=== PATIENT | female | born 1975 | race Caucasian/White ===

== ENCOUNTER 2019-08-08 16:39 | Emergency (ER) | payer OTHER, SELFPAY ==
[2019-08-08 16:45] VITALS: BP 135/79; PULSE 101; RESP 16; TEMP 36.8; O2SAT 99
--- NOTE | 2019-08-08 16:51 | ED.GENADUL_ITS ---
Discharge Plan Disposition Patient Disposition: HOME Condition: Improving Discharge Details Chief Complaint: Abd Prob Clinical Impression: Enteritis, Abdominal pain Primary Care Provider: None,None ED Provider: Yolie Owens Home Meds and New Rx's Prescriptions: New dicyclomine 20 mg tablet 20 mg PO TID PRN (Reason: abdominal pain) Qty: 10 RF: 0 Continued Zyrtec 10 mg Capsule 10 mg PO DAILY RF: 0 Discharge Instructions Instructions: Dicyclomine (By mouth), Abdominal Pain (ED), Enteritis (ED) Additional Instructions: Drink plenty of fluids and get plenty of rest. Alternate tylenol and motrin as needed and directed for pain. Take the dicyclomine (bentyl) as needed and directed for your abdominal pain. Follow-up with your primary care doctor in 1 week. Also call your DIRECTOR TECHNICAL next week for a follow-up appointment for reevaluation. Return to the emergency department with any worsening or new concerning sym ptoms. Discharge Data Discharge Physician: Yolie Owens Medical Decision Making 1635 -- 44-year-old female with a history of appendectomy presents with lower abdominal pain, dysuria, frequency and urgency for the past 5 days. She appears nontoxic. She has mild to moderate lower abdominal tenderness. No CVA tenderness. UTI. Will start with urinalysis and if negative proceed with further work-up. Urinalysis negative for infection. We will proceed with IV and labs, Toradol and CT. Differential diagnosis could include colitis, diverticulitis, ovarian cyst, etc. Patient is agreeable with plan. 1900 --labs and imaging reviewed. Normal white blood cell count, electrolytes. CT notes findings consistent with possible enteritis. Patient reassessed -symptoms improved. She feels good to go home. She is advised to continue fluids, alternating Tylenol and Motrin. Advised to follow up with the primary care doctor for re-evaluation. Usual and customary return precautions given prior to discharge. Medical Records Medical records reviewed: Yes I reviewed the patient's medical records. Imaging Data Radiologic Study: Radiologist's impression: CT Abdomen And Pelvis With Contrast Exam date and time: 08/08/2019 5:58 PM Age: 44 years old Clinical indication: Abdominal pain; Localized; Patient HX: Lower abd pain; Additional info: R/O diverticulitis TECHNIQUE: Imaging protocol: Computed tomography of the abdomen and pelvis with intravenous contrast. COMPARISON: No relevant prior studies available. FINDINGS: Liver: Low-density hepatic lesions consistent with cysts. Gallbladder and bile ducts: Normal. No calcified stones. No ductal dilation. Pancreas: Normal. No ductal dilation. Spleen: Normal. No splenomegaly. Adrenals: Normal. No mass. Kidneys and ureters: Normal. No hydronephrosis. Stomach and bowel: There is mild wall thickening involving the distal duodenum and proximal jejunum. Appendix: No evidence of appendicitis. Intraperitoneal space: Trace free fluid seen in the deep pelvis. Vasculature: Unremarkable. No abdominal aortic aneurysm. Lymph nodes: Unremarkable. No enlarged lymph nodes. Bladder: Unremarkable as visualized. Reproductive: Unremarkable as visualized. Bones/joints: Unremarkable. No acute fracture. Soft tissues: Unremarkable. IMPRESSION: Possible enteritis. Lab Data Lab results reviewed: Yes I reviewed the patient's lab results. Labs: Laboratory Tests Range/Units 08/08/19 08/08/19 08/08/19 17:00 18:05 18:05 WBC (4.4-10.8) k/cumm 9.75 RBC (4.00-5.20) m/cumm 4.55 Hgb (12.0-15.5) g/dL 12.6 Hct (36.0-46.0) % 38.3 MCV (80-95) fL 84.2 MCH (27.0-33.0) pg 27.7 MCHC (32.0-36.0) g/dL 32.9 RDW (11.7-14.6) % 13.5 Plt Count (130-400) x1000/uL 273 MPV (8.0-11.0) fL 9.2 Immature Gran % % 0.3 Neutrophils % 70.5 Lymphocytes % 19.6 Monocytes % 9.0 Eosinophils % 0.4 Basophils % 0.2 Absolute Neutrophils (1.2-6.7) k/cumm 6.87 H Absolute Lymphocytes (1.2-3.4) k/cumm 1.91 Absolute Monocytes (0.11-0.7) k/cumm 0.88 H Absolute Eosinophils (0.0-0.7) k/cumm 0.04 Absolute Basophils (0.0-0.2) k/cumm 0.02 Sodium (136-145) mmol/L Potassium (3.5-5.1) mmol/L Chloride (98-107) mmol/L Carbon Dioxide (21.0-32.0) mmol/L Anion Gap (3-11) mmol/L BUN (7-18) mg/dL Creatinine (0.55-1.02) mg/dL Estimated GFR/1.73 m2 (mL/min/1.73m2) Glucose (74-106) mg/dL Calcium (8.5-10.1) mg/dL Total Bilirubin (0.2-1.0) mg/dL AST (15-37) U/L ALT (14-59) U/L Alkaline Phosphatase (46-116) U/L Total Protein (6.4-8.2) g/dL Albumin (3.4-5.0) g/dL Lipase (73-393) U/L 73 Urine Color (Yellow) Yellow Urine Clarity (Clear) Clear Urine pH (5-8) 7.0 Ur Specific [place] (1.005-1.025) 1.010 Urine Protein (Negative) mg/dL Negative Urine Ketones (Negative) mg/dL 40 H Urine Blood (Negative) Negative Urine Nitrite (Negative) Negative Urine Bilirubin (Negative) Negative Urine Urobilinogen (Up TO 0.2) EU/dL 0.2 Ur Leukocyte Esterase (Negative) Negative Urine Glucose (Negative) mg/dL Negative Range/Units 08/08/19 18:05 WBC (4.4-10.8) k/cumm RBC (4.00-5.20) m/cumm Hgb (12.0-15.5) g/dL Hct (36.0-46.0) % MCV (80-95) fL MCH (27.0-33.0) pg MCHC (32.0-36.0) g/dL RDW (11.7-14.6) % Plt Count (130-400) x1000/uL MPV (8.0-11.0) fL Immature Gran % % Neutrophils % Lymphocytes % Monocytes % Eosinophils % Basophils % Absolute Neutrophils (1.2-6.7) k/cumm Absolute Lymphocytes (1.2-3.4) k/cumm Absolute Monocytes (0.11-0.7) k/cumm Absolute Eosinophils (0.0-0.7) k/cumm Absolute Basophils (0.0-0.2) k/cumm Sodium (136-145) mmol/L 136 Potassium (3.5-5.1) mmol/L 3.6 Chloride (98-107) mmol/L 102 Carbon Dioxide (21.0-32.0) mmol/L 25.5 Anion Gap (3-11) mmol/L 8.5 BUN (7-18) mg/dL 8 Creatinine (0.55-1.02) mg/dL 0.81 Estimated GFR/1.73 m2 (mL/min/1.73m2) >= 60.00 Glucose (74-106) mg/dL 102 Calcium (8.5-10.1) mg/dL 9.1 Total Bilirubin (0.2-1.0) mg/dL 0.5 AST (15-37) U/L 15 ALT (14-59) U/L 21 Alkaline Phosphatase (46-116) U/L 75 Total Protein (6.4-8.2) g/dL 7.3 Albumin (3.4-5.0) g/dL 3.7 Lipase (73-393) U/L Urine Color (Yellow) Urine Clarity (Clear) Urine pH (5-8) Ur Specific [place] (1.005-1.025) Urine Protein (Negative) mg/dL Urine Ketones (Negative) mg/dL Urine Blood (Negative) Urine Nitrite (Negative) Urine Bilirubin (Negative) Urine Urobilinogen (Up TO 0.2) EU/dL Ur Leukocyte Esterase (Negative) Urine Glucose (Negative) mg/dL HPI General Mode of arrival: ambulatory . Date/Time Provider Initiated Documentation: 08/08/19 16:42 . Limitations to Documentation: no limitations . Information obtained by: patient . HPI Narrative: Patient is a 44-year-old female with a history of appendectomy who presents with lower abdominal pain for the past 5 days. She describes the pain is intermittent, stabbing, and pressure-like that started around her umbilicus and radiates down into her pubic area. She denies any aggravating or alleviating factors. She states the pain is currently 5/10. She admits to some nausea and decreased appetite this week but denies any vomiting or diarrhea. She does admit to some intermittent dysuria, urinary frequency and urgency. She states she gets regular periods and denies any abnormal vaginal bleeding. She states she has not been sexually active for 2 months and denies any vaginal discharge, known exposure to STDs or vaginal lesions. Related Data Home Medications Medication Instructions Recorded Confirmed Zyrtec 10 mg PO DAILY 08/08/19 08/08/19 dicyclomine 20 mg PO TID PRN #10 tab 08/08/19 Previous Rx's Medication Instructions Recorded dicyclomine 20 mg PO TID PRN #10 tab 08/08/19 Allergies Allergy/AdvReac Type Severity Reaction Status Date / Time No Known Allergies Allergy Unverified 08/08/19 16:49 General Stated Complaint: Abd Prob CRISTOBAL: 3 Review of Systems All systems reviewed & are unremarkable except as noted in HPI and below Constitutional Constitutional: Reports as per HPI, Denies chills and Denies fever(s) Eyes Eyes: Denies blurry vision ENT Ears, Nose, Mouth, and Throat: Denies dizziness, Denies sore throat and Denies throat swelling Cardiovascular Cardiovascular: Denies chest pain and Denies dyspnea Respiratory Respiratory: Denies cough and Denies dyspnea Gastrointestinal Gastrointestinal: Reports abdominal pain, Denies diarrhea and Denies vomiting Genitourinary Genitourinary: Denies hematuria and Denies dysuria Musculoskeletal Musculoskeletal: Denies back pain and Denies numbness Integumentary/Breasts Skin/Breast: Denies lesions and Denies rash Neurologic Neurologic: Denies dizziness, Denies localized weakness and Denies numbness Allergic/Immunologic Allergic/Immunologic: Denies throat swelling [facility] Medical History (Updated 08/08/19 @ 19:15 by Yolie Owens DO) No significant past medical history (Acute) Surgical History (Updated 08/08/19 @ 16:56 by Tram Tucker) History of appendectomy (Chronic) History of section (Chronic) Social History Smoking/Tobacco Use Status: Former Tobacco Use Alcohol Intake: never Drug use: Never Substance use type: does not use Details: quit smoking at 17 yrs age Do you feel safe at home: No Do you feel safe in your relationship?: No Exam Const General: cooperative, healthy appearing and no acute distress [facility] Head: normal to inspection Face and sinus: normal facial exam Eyes General: appearance normal, both eyes and all related structures EOM: EOM intact bilaterally Neck Neck: normal visual inspection and No submandibular swelling Lymphatic: no lymphadenopathy noted Chest Chest: normal inspection of the chest and no tenderness Resp Effort & Inspection: normal respiratory effort and able to speak in complete sentences Auscultation: clear to auscultation bilaterally Cardio Rate: regular rate Rhythm: regular rhythm GI Inspection: normal to inspection Palpation: soft, not firm, not rigid and tender in the LLQ, in the RLQ and suprapubicly Auscultation: normal bowel sounds and hypoactive bowel sounds Back/Spine/Pelvis Back: no CVA tenderness Skin General skin exam: no rashes or lesions noted Neuro General: patient alert, patient awake and patient oriented x3 Cognition: normal cognition Speech: speech normal Motor: muscle tone normal throughout Sensory Exam: no sensory deficits noted Extrem General: normal to inspection, full ROM, capillary refill normal, no calf tenderness bilaterally and no edema Psych Appearance: grossly normal Mental Status: mental status grossly normal Speech and Movement: speech and movement normal Affect: normal affect Course Vital Signs Vital signs: Vital Signs Temperature 98.2 F 08/08/19 16:45 Pulse 101 H 08/08/19 16:45 Respiratory Rate 16 08/08/19 16:45 Blood Pressure 135/79 08/08/19 16:45 Pulse Oximetry 99 08/08/19 16:45 Temperature 98.2 F 08/08/19 16:45 Temperature Source Temporal Artery Scan 08/08/19 16:45 Pulse 101 H 08/08/19 16:45 Respiratory Rate 16 08/08/19 16:45 Blood Pressure 135/79 08/08/19 16:45 Pulse Oximetry 99 08/08/19 16:45 Oxygen Delivery Method Room Air 08/08/19 16:45 Oxygen Flow Rate 0 08/08/19 16:45 Pain Level 2 08/08/19 16:45
[2019-08-08] MEDS: Acetaminophen 500 MG TAB 1000 MG PO (17:23)
--- NOTE | 2019-08-08 17:45 | DI.CT_ITS ---
EXAM: CT ABDOMEN PELVIS W CLINICAL HISTORY: lower abd pain, r/o diverticulitis TECHNIQUE: Imaging Protocol: Axial computed tomography images with coronal and sagittal reformatted images were created and reviewed CONTRAST MATERIAL: Intravenous: Omnipaque 350 Contrast volume:100 mL Oral: No COMPARISON: No exams were available for comparison FINDINGS: ABDOMEN: Lung Bases: Normal where visualized. Liver: Normal density. Several well-circumscribed round hypodensities are seen throughout the liver, most suggestive of cysts. No suspicious hepatic mass. Portal, Superior Mesenteric, and Splenic Veins: Unremarkable. Gallbladder and Biliary Tract: No radiodense calculus or dilation. Pancreas: Normal density, no abnormal calcifications or inflammatory process. Spleen: Normal. Adrenals: No masses seen. Kidneys: Normal size, contour and axis. No radiodense stones or obstructive uropathy. No masses seen. Abdominal Aorta: Abdominal portion non-dilated. Bowel: There is no evidence of bowel obstruction. There is mild wall thickening in the duodenum and proximal jejunum. No evidence of acute appendicitis. There are surgical clips in the right lower qu adrant which may reflect prior appendectomy. Peritoneal Cavity: No ascites, collection or mesenteric inflammatory response. There is a trace amoun t of free fluid in the cul-de-sac. Lymph Nodes: Within normal limits. Bones: Unremarkable. Soft Tissues: Unremarkable. PELVIS: Bladder: Symmetric distention, no gross wall thickening. Reproductive Organs: Unremarkable as visualized. Lymph Nodes: Within normal limits. Bones: Within normal limits. IMPRESSION: Mild wall thickening of the duodenum or proximal jejunum. This may reflect a mild enteritis. RADIATION DOSE DELIVERED: Total DLP DATA REPOSITORY: All CT scans at this facility are submitted to the National Radiology Data Registry (NRDR) Dose Index Registry (DIR) with the [employer] (ACR). RADIATION OPTIMIZATION: All CT scans at this facility use at least one of these dose optimization te chniques: automated exposure control; mA and/or kV adjustment per patient size (includes targeted exa ms where dose is matched to clinical indication); or iterative reconstruction.
[2019-08-08 17:52] LABS: Bilirubin Negative (Negative); Blood Negative (Negative); Clarity Clear (Clear); Glucose Negative (Negative); Ketones 40 mg/dL (Negative); Leukocyte Esterase Negative (Negative); Nitrite Negative (Negative); Urobilinogen 0.2 EU/dL (Up TO 0.2)
[2019-08-08] MEDS: Ketorolac 30 MG/ML VIAL IVP (18:08)
[2019-08-08] MEDS: Omnipaque 350 MG/ML 100 ML BTL IJ (18:17)
[2019-08-08] MEDS: Normal Saline - Diluent 50 ML VIAL IV (18:18)
[2019-08-08 18:21] LABS: Lipase 73 U/L (73-393)
[2019-08-08 18:38] LABS: Abs Immature Grans 0.03 k/cumm (0.0-0.09); Absolute Basophil Count 0.02 k/cumm (0.0-0.2); Absolute Eosinophil Count 0.04 k/cumm (0.0-0.7); Absolute Lymphocyte Count 1.91 k/cumm (1.2-3.4); Absolute Monocyte Count 0.88 k/cumm (0.11-0.7); Absolute Neutrophil Count 6.87 k/cumm (1.2-6.7); Basophils % 0.2; Eosinophils % 0.4; HCT 38.3 % (36.0-46.0); HGB 12.6 g/dL (12.0-15.5); Immature Grans % 0.3 %; Lymphocytes % 19.6; Mean Corp. HGB Concentration 32.9 g/dL (32.0-36.0); Mean Corpuscular Hemoglobin 27.7 pg (27.0-33.0); Mean Corpuscular Volume 84.2 fL (80-95); Mean Platelet Volume 9.2 fL (8.0-11.0); Neutrophils % 70.5; Platelet Count 273 x1000/uL (130-400); RBC 4.55 m/cumm (4.00-5.20); RBC Distribution Width 13.5 % (11.7-14.6); White Blood Cell Count 9.75 k/cumm (4.4-10.8)
--- NOTE | 2019-08-08 18:41 | DI.VRAD_ITS ---
PROCEDURE INFORMATION: Exam: CT Abdomen And Pelvis With Contrast Exam date and time: 08/08/2019 5:58 PM Age: 44 years old Clinical indication: Abdominal pain; Localized; Patient HX: Lower abd pain; Additional info: R/O diverticulitis TECHNIQUE: Imaging protocol: Computed tomography of the abdomen and pelvis with intravenous contrast. COMPARISON: No relevant prior studies available. FINDINGS: Liver: Low-density hepatic lesions consistent with cysts. Gallbladder and bile ducts: Normal. No calcified stones. No ductal dilation. Pancreas: Normal. No ductal dilation. Spleen: Normal. No splenomegaly. Adrenals: Normal. No mass. Kidneys and ureters: Normal. No hydronephrosis. Stomach and bowel: There is mild wall thickening involving the distal duodenum and proximal jejunum. Appendix: No evidence of appendicitis. Intraperitoneal space: Trace free fluid seen in the deep pelvis. Vasculature: Unremarkable. No abdominal aortic aneurysm. Lymph nodes: Unremarkable. No enlarged lymph nodes. Bladder: Unremarkable as visualized. Reproductive: Unremarkable as visualized. Bones/joints: Unremarkable. No acute fracture. Soft tissues: Unremarkable. IMPRESSION: Possible enteritis. COMMENTS: Preliminary interpretation is based on receipt of 1101 image(s). A final report will be issued subsequently. Dictated and Authenticated by: Tram Macias MD. Ordering:LINAD Urbano MD
[2019-08-08 19:03] LABS: ALT 21 U/L (14-59); AST 15 U/L (15-37); Albumin 3.7 g/dL (3.4-5.0); Alkaline Phosphatase 75 U/L (46-116); Anion Gap 8.5 mmol/L (3-11); BUN 8 mg/dL (7-18); Bilirubin, Total 0.5 mg/dL (0.2-1.0); CO2 25.5 mmol/L (21.0-32.0); CREATININE 0.81 mg/dL (0.55-1.02); Calcium 9.1 mg/dL (8.5-10.1); Chloride 102 mmol/L (98-107); Glucose 102 mg/dL (74-106); Potassium 3.6 mmol/L (3.5-5.1); Sodium 136 mmol/L (136-145); Total Protein 7.3 g/dL (6.4-8.2)
[2019-08-08 19:09] VITALS: BP 112/68; PULSE 94; RESP 15; O2SAT 99
[2019-08-08 19:32] VITALS: BP 111/69; PULSE 84; RESP 18; TEMP 37.1; O2SAT 98
== END 2019-08-08 19:55 | disposition home or self-care (01) ==
PROVIDERS: Emergency Provider Physician Assistant
DX: K52.89 Other specified noninfective gastroenteritis and colitis (principal); R11.0 Nausea; R30.0 Dysuria
CPT/HCPCS: 36415; 80053; 81025; 83690; 96374; 99285; 74177; 81003; 85025; J1885; J3490

== ENCOUNTER 2019-08-14 10:46 | Outpatient (REF) | payer OTHER, SELFPAY ==
--- NOTE | 2019-08-14 10:00 | PAPFT_PTH ---
PATIENT: Oliva Terrazas LOC: [facility] U#:[id number] AGE/SX: 44/F ROOM: RE08/14/[address]: Judy Gaspar DO : 1975 BED: DIS: 08/14/2019 SPEC #: [id number] RECD: 08/14/19 12:41 STATUS: OKRTNEY REQ #: [id number] PEDRO: 08/14/19 10:[address]: Judy Gaspar DEPT: [facility] Cytology RECD BY: Margie Inman ENTERED: 08/14/19 12:41 SP TYPE: PAPFT OTHR DR: None Tissues: 1 - CX/ENDOCX FOR PAP SMEARS Procedures: PAP THIN PREP/UVM Screening HPV DNA PROBE Comments: [id number] (CHLAMYDIA/GC)
[2019-08-14 11:07] LABS: Abs Immature Grans 0.01 k/cumm (0.0-0.09); Absolute Basophil Count 0.01 k/cumm (0.0-0.2); Absolute Eosinophil Count 0.01 k/cumm (0.0-0.7); Absolute Lymphocyte Count 1.36 k/cumm (1.2-3.4); Absolute Monocyte Count 0.44 k/cumm (0.11-0.7); Absolute Neutrophil Count 4.56 k/cumm (1.2-6.7); Basophils % 0.2; Eosinophils % 0.2; HCT 38.6 % (36.0-46.0); Immature Grans % 0.2 %; Lymphocytes % 21.3; Mean Corp. HGB Concentration 33.7 g/dL (32.0-36.0); Mean Corpuscular Hemoglobin 28.5 pg (27.0-33.0); Mean Corpuscular Volume 84.6 fL (80-95); Mean Platelet Volume 9.6 fL (8.0-11.0); Monocytes % 6.9; Neutrophils % 71.2; Platelet Count 282 x1000/uL (130-400); RBC 4.56 m/cumm (4.00-5.20); RBC Distribution Width 13.5 % (11.7-14.6); White Blood Cell Count 6.39 k/cumm (4.4-10.8)
[2019-08-14 11:22] LABS: ALT 21 U/L (14-59); AST 13 U/L (15-37); Albumin 3.8 g/dL (3.4-5.0); Alkaline Phosphatase 75 U/L (46-116); Anion Gap 7.1 mmol/L (3-11); BUN 13 mg/dL (7-18); Bilirubin, Total 0.5 mg/dL (0.2-1.0); CO2 25.9 mmol/L (21.0-32.0); CREATININE 1.04 mg/dL (0.55-1.02); Calcium 8.8 mg/dL (8.5-10.1); Calculated LDL 86 mg/dL (<100); Chloride 104 mmol/L (98-107); Cholesterol 155 mg/dL (<200); Glucose 111 mg/dL (74-106); HDL Cholesterol 58 mg/dL (40-60); Potassium 3.7 mmol/L (3.5-5.1); Sodium 137 mmol/L (136-145); TSH (W/Ref FT4) 2.43 uIU/mL (0.36-3.74); Total Protein 7.7 g/dL (6.4-8.2); Triglyceride 56 mg/dL (<150)
[2019-08-15 15:19] LABS: Chlamydia Result Negative (Negative); GC Result Negative (Negative)
== END 2019-08-14 11:06 ==
LOC: LBN 10:46
PROVIDERS: Visit Provider Obstetrics & Gynecology
DX: R10.9 Unspecified abdominal pain (principal); Z13.220 Encounter for screening for lipoid disorders; Z11.3 Encounter for screening for infections with a predominantly sexual mode of transmission; Z12.4 Encounter for screening for malignant neoplasm of cervix
CPT/HCPCS: 80053; 80061; 87491; 87591; 88142; 84443; 85025; 87624

== ENCOUNTER 2024-10-09 10:55 | Outpatient (REF) | payer OTHER, SELFPAY ==
--- NOTE | 2024-10-09 09:30 | PAPFT_PTH ---
PATIENT: Oliva Terrazas LOC: [facility] U#:[id number] AGE/SX: 49/F ROOM: RE10/09/[address]: Judy Gaspar DO : 1975 BED: DIS: 10/09/2024 SPEC #: [id number] RECD: 10/09/24 12:54 STATUS: KORTNEY REQ #: [id number] PEDRO: 10/09/24 09:[address]: Judy Gaspar [facility] Cytology RECD BY: Margie Inman ENTERED: 10/09/24 12:55 SP TYPE: PAPFT OTHR DR: Unknown,Unknown Tissues: 1 - CX/ENDOCX FOR PAP SMEARS Procedures: PAP THIN PREP/UVM Screening HPV DNA PROBE Comments: [id number] (HPV 16 & 18/45)
== END 2024-10-09 10:56 | disposition home or self-care (01) ==
LOC: LBN 10:55
PROVIDERS: Visit Provider Obstetrics & Gynecology
DX: Z12.4 Encounter for screening for malignant neoplasm of cervix (principal)
CPT/HCPCS: 88142; 87624

== ENCOUNTER 2024-12-11 06:53 | Day surgery (SDC) | payer OTHER, SELFPAY ==
[2024-12-11 07:14] VITALS: BP 131/77; PULSE 103; RESP 16; TEMP 36.5; O2SAT 99
[2024-12-11] MEDS: Lactated Ringers 1,000 ML 80 ML IV (07:21)
--- NOTE | 2024-12-11 08:14 | W.PM.HP.N ---
Date of service: 12/11/24 Time of Service: 08:15 Assessment and Plan Assessment and plan (1) Encounter for screening colonoscopy: Status: Acute Assessment and plan: proceed with colonoscopy as planned. History of Present Illness Narrative: The patient presents for a screening colonoscopy. She has never undergone a colonoscopy and is asymptomatic. Her sister's colonoscopy revealed polyps, prompting her screening. There is no personal or family history of colon cancer, uterine or ovarian cancer, Crohn's disease, or ulcerative colitis. She is anxious about the procedure, especially the preparation. Dulcolax previously caused cramping. She is curious about sedation due to a past negative reaction to general anesthesia during an appendectomy but tolerated sedation well during a D and C 10 years ago. PFSH All Active Problems (Updated 12/11/24 @ 08:15 by Claudia Worley MD) Encounter for screening colonoscopy (Acute) Fatigue (Acute) Sushil (Acute) Well woman exam with routine gynecological exam (Acute) Medical History No significant past medical history Surgical History H/O dilation and curettage History of section History of appendectomy Social History Smoking/Tobacco Use Status: Former Tobacco Use Smoking risk assessment performed?: Yes Alcohol Intake: never Drug use: Never Substance use type: does not use Details: quit smoking at 17 yrs age Current gender identity: female What type of physical activity do you participate in: regular exercise Frequency: 3-4 times per week Do you feel safe at home: Yes Do you feel safe in your relationship?: No Meds Allergies and Home Medications Allergies Allergy/AdvReac Type Severity Reaction Status Date / Time No Known Allergies Allergy Unverified 12/11/24 07:13 Home Medications ?Medication ?Instructions ?Recorded ?Confirmed ?Type cetirizine 10 mg capsule (Zyrtec) 10 mg PO DAILY 08/08/19 12/11/24 History cholecalciferol (vitamin D3) 50 50 mcg PO DAILY 10/09/24 12/11/24 History mcg (2,000 unit) capsule magnesium 200 mg tablet 400 mg PO DAILY 10/09/24 12/11/24 History norgestimate 0.25 mg-ethinyl 1 tab PO DAILY #84 tabs 10/14/24 12/11/24 Rx estradiol 0.035 mg tablet (Sprintec (28)) bisacodyl 5 mg tablet,delayed 5 mg PO ONCE #4 tabs 10/31/24 12/05/24 Rx release (Dulcolax (bisacodyl)) polyethylene glycol 3350 17 17 g PO ONCE #238 grams 10/31/24 12/05/24 Rx gram/dose oral powder Exam Narrative Exam Narrative: awake, NAD eomi, MMM midline trachea, neck is symmetric PULM: normal resp effort, equal chest rise with respiration, no wheezing audible CARDIAC: normal PMI, no jvd, regular rate, normal perfusion abdomen is nondistended. extremities are without deformity, normal movement of all four extremities speech is clear and coherent mood and affect are congruent, no focal neurological deficits skin without rash Results Last Vital Signs Temp 97.7 F 12/11/24 07:14 Pulse 103 H 12/11/24 07:14 Resp 16 12/11/24 07:14 BP 131/77 12/11/24 07:14 Pulse Ox 99 12/11/24 07:14 Time Spent Time spent with Patient: <40 minutes Time was spent: preparing to see the patient(eg.review tests) and counseling the patient
--- NOTE | 2024-12-11 08:16 | W.ANESPRE ---
General Info Date of Service Date Performed: 12/11/24 Height: 5 ft 2 in Weight: 81.647 kg Body Mass Index (BMI): 32.9 Surgical Procedure: Operation Date: 12/11/24 08:35 Proposed Procedure Side Surgeon p Colonoscopy Claudia Worley MD Actual Procedure Side Surgeon p Colonoscopy Not Applicable Claudia Worley MD Pre-Op Diagnosis Post-Op Diagnosis Screening colonoscopy Meds Allergies and Home Medications Allergies Allergy/AdvReac Type Severity Reaction Status Date / Time No Known Allergies Allergy Unverified 12/11/24 07:13 Home Medication ?Medication ?Instructions ?Recorded cetirizine 10 mg capsule (Zyrtec) 10 mg PO DAILY 08/08/19 cholecalciferol (vitamin D3) 50 50 mcg PO DAILY 10/09/24 mcg (2,000 unit) capsule magnesium 200 mg tablet 400 mg PO DAILY 10/09/24 norgestimate 0.25 mg-ethinyl 1 tab PO DAILY #84 tabs 10/14/24 estradiol 0.035 mg tablet (Sprintec (28)) bisacodyl 5 mg tablet,delayed 5 mg PO ONCE #4 tabs 10/31/24 release (Dulcolax (bisacodyl)) polyethylene glycol 3350 17 17 g PO ONCE #238 grams 10/31/24 gram/dose oral powder Current Visit Medications: Current Medications Generic Name Dose Route Start Last Admin Trade Name Freq PRN Reason Stop Dose Admin Ringer's Solution 1,000 mls @ 80 mls/hr 12/11/24 06:00 12/11/24 07:21 IV 12/11/24 23:59 80 mls/hr INFUSION CHRISTY Administration IV Miscellaneous Supplies 1 each 12/11/24 06:00 Iv Access IV 12/11/24 23:59 DIRECTED CHRISTY Sodium Biphosphate/Sodium Phosphate 133 ml 12/11/24 06:00 Na Phosphate Enema-Adult 133 Ml Btl MS 12/11/24 23:59 DIRECTED PRN Sodium Chloride 0 ml 12/11/24 06:00 Normal Saline Flush 10 Ml Syr IV 12/11/24 23:59 PRN PRN Sodium Chloride 0 ml 12/11/24 06:00 Normal Saline 10 Ml Vial IJ 12/11/24 23:59 DIRECTED PRN Sterile Water 0 ml 12/11/24 06:00 Water,Injection,Sterile 10 Ml Vial IJ 12/11/24 23:59 DIRECTED PRN PFSH Active Problems Active Problems: Problem Status Onset Code Encounter for screening colonoscopy Acute Z12.11 Fatigue Acute R53.83 [place]chmerz Acute N94.0 Well woman exam with routine gynecological exam Acute Z01.419 Medical History Medical History No significant past medical history Surgical History Surgical History H/O dilation and curettage History of section History of appendectomy Tobacco Smoking/Tobacco Use Status: Former Tobacco Use Passive smoking exposure: No Alcohol Alcohol Intake: never Substance Use Substance use: Never Substance use type: does not use Details: quit smoking at 17 yrs age Vital Signs and Lab Results Vital Signs Most Recent Vital Signs in EMR: Most Recent Vital Signs Temp Pulse Resp BP Pulse Ox 36.5 C 103 H 16 131/77 99 12/11/24 07:14 12/11/24 07:14 12/11/24 07:14 12/11/24 07:14 12/11/24 07:14 Anesthesia Assessment and Plan Anesthesia History Personal History: PONV and Delayed Emergence Family History: No Family History of Anesthesia Complications Exercise Tolerance Exercise Tolerance: Metabolic Equivalents>4 Pertinent Negatives Pertinent Negatives: No Symptoms of GERD Cardiac & Pulmonary Exam Cardiac Exam: Normal S1/S2 Heart Sounds Pulmonary Exam: Clear Bilateral Breath Sounds Implantable Cardiac Device Does patient have a Pacemaker or an ICD?: No Airway Exam Known Difficult Airway: No Mallampati Class: 2 Mouth Opening: Normal (> 3cm) Thyromental Distance: Greater than 3 cm Neck Range of Motion: Full ROM Neck Circumference: Normal Teeth Condition: Normal Dentition ASA Classification ASA Score: ASA 2 Emergency Case?: No NPO Status NPO Status: NPO Clears >2 hours, Solids >8 hours Status Status: Negative HCG Anesthesia Plan Resuscitation Status: Full Code Anesthesia Technique: General Anesthesia Airway Planned: Natural Airway Monitors Used: Standard Monitors
[2024-12-11 08:17] VITALS: BMI 32.9
--- NOTE | 2024-12-11 08:22 | W.PM.DSUDISC ---
Date of service: 12/11/24 Discharge Plan Disposition Patient Disposition: Home Condition: Stable Discharge Details Attending Provider: Claudia Worley Primary Care Provider: Oscar De Jesus Recommendations for Follow Up Recommended tests to be ordered by follow up provider: Timing of next colonoscopy 10 years Home Meds and New Rx's Prescriptions: Discontinued bisacodyl [Dulcolax (bisacodyl)] 5 mg tablet,delayed release (DR/EC) 5 mg PO ONCE Qty: 4 0RF Rx Instructions: Take per colonoscopy instructions provided by ordering providers office polyethylene glycol 3350 17 gram/dose powder 17 g PO ONCE Qty: 238 0RF Rx Instructions: Take per colonoscopy instructions provided by ordering providers office No Action magnesium 200 mg tablet 400 mg PO DAILY cholecalciferol (vitamin D3) 50 mcg (2,000 unit) capsule 50 mcg PO DAILY norgestimate-ethinyl estradiol [Sprintec (28)] 0.25-0.035 mg tablet 1 tab PO DAILY Qty: 84 0RF Rx Instructions: As Directed-no further refills. Patient needs appointment. Zyrtec 10 mg Capsule 10 mg PO DAILY Discharge Instructions Additional Instructions: Colonoscopy showed a healthy normal colon. Zero polyps. No diverticulosis or other findings. Very normal colon. excellent prep. Next colonoscopy due in 10 years. Stand Alone Forms: Anesthesia Discharge Inst., Colonoscopy Post Instructions, Ilsa Elmore ([facility]) Activity:: Activity as Tolerated Diet:: As Tolerated Discharge Orders Discharge Orders: Discharge Order (Routine); Ordered 12/11/24 Ordered By: Claudia Worley DS: Diagnosis Discharge Diagnosis (1) Encounter for screening colonoscopy: Status: Acute
--- NOTE | 2024-12-11 08:42 | COLE_ITS ---
Date of service: 12/11/24 Time of Service: 08:42 Colonoscopy Report Pre-op diagnosis general: Screening for colorectal cancer Post-op diagnosis procedure note: same Procedure: Colonoscopy Surgeon: Claudia Worley Anesthesia Type: General:No Airway Estimated blood loss (mL): 0 Pathology: none sent Complications: None Indications: screening for colorectal cancer Prep: Miralax/Dulcolax (excellent) Procedure Description: Patient is here for routine screening colonoscopy. Informed consent was obtained and the patient was taken to the procedure area. The patient was placed in left lateral decubitus position on the procedure table. Timeout was performed. Anesthesia was induced. A lubricated colonoscope was inserted through the anus and passed to the cecum. The cecum was identified by the ile ocecal valve and the appendiceal orifice. The scope was then slowly withdrawn and the colonic and rectal mucosa examined. There are no colon or rectal mass lesions, polyps, AVMs. There is no inflam matory change. No diverticulosis was seen. The scope was retroflexed in the anorectal junction examined. Uncomplicated internal hemorrhoids present. Assessment and plan; Normal screening colonoscopy. Average risk patient. Next screening colonoscopy will be due in 10 years.
[2024-12-11 08:46] VITALS: BP 101/66; PULSE 96; RESP 18; TEMP 36.4; O2SAT 98
--- NOTE | 2024-12-11 08:51 | W.ANESPOSTOP ---
Postoperative Evaluation Date, Time and Location Date Performed: 12/11/24 Time Performed: 08:51 Patient Location: Day [facility] Unit Vital Signs Most Recent Imported Vital Signs: Most Recent Vital Signs Temp Pulse Resp BP Pulse Ox 36.4 C L 96 H 18 101/66 98 12/11/24 08:46 12/11/24 08:46 12/11/24 08:46 12/11/24 08:46 12/11/24 08:46 Pain Score Most Recent Pain Score: Most Recent Pain Score Pain Level 0 12/11/24 08:46 Assessment Mental Status: Awake (Alert & Oriented to Patient Baseline) Airway and Respiratory Function: Patent airway with normal (patient baseline) respiratory exam Cardiovascular Function: Hemodynamically Stable Hydration Status: Adequately Hydrated Nausea & Vomiting: No Nausea or Vomiting Pain: Pt. Denies Any Pain Peripheral Nerve Block: Patient did not receive a nerve block
[2024-12-11 09:15] VITALS: BP 99/73; PULSE 75; RESP 16; TEMP 36.2; O2SAT 99
== END 2024-12-11 09:28 | disposition home or self-care (01) ==
LOC: SUR 06:53
PROVIDERS: PCP Registered Nurse; Visit Provider Surgery
PROC: 0DJD8ZZ Inspection of Lower Intestinal Tract, Via Natural or Artificial Opening Endoscopic (ICD-10-PCS; CPT 45378; principal; 2024-12-11 08:30)
DX: Z12.11 Encounter for screening for malignant neoplasm of colon (principal)
CPT/HCPCS: 45378; J2003; J2704